=== PATIENT | female | born 1980 | race American Indian/Alaskan Native ===

== ENCOUNTER 2021-06-05 20:22 | Inpatient (IN) | payer OTHER ==
[2021-06-06 00:24] LABS: Bilirubin,Urine NEG (Negative); Blood,Urine NEG (Negative); Color,Urine Colorless (Yellow); Mucus,Urine FEW /HPF; Protein,Urine <15 mg/dL mg/dL (Negative); Urobilinogen,Urine < 2.0 mg/dL (<2.0); WBC,Urine < 1.0 /HPF (0.0-6.0)
[2021-06-06 00:37] LABS: Basophils # (Auto) 0.1 K/mm3 (0.0-0.1); Basophils % (Auto) 0.8 % (0.0-1.8); Eosinophils # (Auto) 0.1 K/mm3 (0.0-0.4); Eosinophils % (Auto) 1.2 % (0.0-4.3); Hemoglobin 13.8 gm/dl (10.1-14.3); Lymphocytes # (Auto) 3.3 K/mm3 (1.2-5.4); Lymphocytes % (Auto) 40.8 % (13.4-35.0); Mean Corpuscular HGB Conc 33 % (30-34); Mean Corpuscular Volume 92 fl (79-97); Monocytes # (Auto) 0.6 K/mm3 (0.0-0.8); Platelet Count 278 K/mm3 (140-440); Red Blood Count 4.57 M/mm3 (3.65-5.03); Red Cell Distribution Width 12.8 % (13.2-15.2)
[2021-06-06 00:55] LABS: Alanine Aminotransferase 61 units/L (7-56); Albumin 4.7 g/dL (3.9-5); BUN/Creatinine Ratio 17; Blood Urea Nitrogen 19 mg/dL (7-17); Calcium 10.3 mg/dL (8.4-10.2); Hemolysis Index 3
[2021-06-06] MEDS ORDERED: INSULIN REGULAR, HUMAN 100 UNITS/1 ML IV ONE (02:15)
[2021-06-06] MEDS ORDERED: SODIUM CHLORIDE 0.9% 1000 ML 1,000 ML IV ONE (02:15)
[2021-06-06] MEDS ORDERED: ONDANSETRON 4 MG/2 ML INJ IV ONE (02:49)
--- NOTE | 2021-06-06 02:56 | Emergency Department Report ---
ED General Adult HPI - General Chief complaint: Abdominal Pain Stated complaint: STOMACH BURNING/SOB/DEHYDRATED Time Seen by Provider: 06/06/21 02:15 Source: patient Mode of arrival: Ambulatory Limitations: No Limitations - History of Present Illness Initial comments: Patient is 41 years old obese female with no significant past medical history. Patient presented to the ER complaining of generalized weakness, nausea, diffuse abdominal pain, thirsty and increased urinary frequency. Patient stated that symptoms started 3 weeks ago but is getting worse now. Patient denied any fever or chills. No cough. Severity scale (0 -10): 5 - Related Data Allergies Allergy/AdvReac Type Severity Reaction Status Date / Time shrimp Allergy Unknown Uncoded 06/05/21 21:44 ED Review of Systems ROS: Stated complaint: STOMACH BURNING/SOB/DEHYDRATED Other details as noted in HPI Comment: All other systems reviewed and negative Constitutional: denies: chills, fever Respiratory: denies: cough, shortness of breath, SOB with exertion, SOB at rest Cardiovascular: denies: chest pain, palpitations Endocrine: increased hunger, increased thirst, increased urine Gastrointestinal: abdominal pain, nausea. denies: vomiting, diarrhea, constipation, hematemesis, melena, hematochezia Genitourinary: frequency. denies: urgency, dysuria Musculoskeletal: denies: back pain Neurological: weakness. denies: headache, numbness, paresthesias, confusion, abnormal gait ED Past Medical Hx - Past Medical History Previous Medical History?: No - Surgical History Past Surgical History?: Yes Additional Surgical History: R arm sx, c-sectionx1 ED Physical Exam - General Limitations: No Limitations General appearance: alert, in no apparent distress - Head Head exam: Present: atraumatic, normocephalic, normal inspection - Eye Eye exam: Present: normal appearance, PERRL - ENT ENT exam: Present: mucous membranes dry - Neck Neck exam: Present: normal inspection, full ROM. Absent: tenderness, meningismus - Respiratory Respiratory exam: Present: normal lung sounds bilaterally - Cardiovascular Cardiovascular Exam: Present: regular rate, normal rhythm, normal heart sounds - GI/Abdominal GI/Abdominal exam: Present: soft, normal bowel sounds. Absent: distended, tenderness, guarding, rebound, rigid, organomegaly, mass, bruit, pulsatile mass, hernia - Extremities Exam Extremities exam: Present: normal inspection, full ROM, normal capillary refill. Absent: tenderness, pedal edema, joint swelling, calf tenderness - Back Exam Back exam: Present: normal inspection, full ROM. Absent: CVA tenderness (R), CVA tenderness (L) - Neurological Exam Neurological exam: Present: alert, oriented X3, CN II-XII intact, normal gait, reflexes normal. Absent: motor sensory deficit - Psychiatric Psychiatric exam: Present: normal mood - Skin Skin exam: Present: warm, dry, intact ED Course Vital Signs 06/05/21 21:44 Temperature 98.2 F Pulse Rate 81 Respiratory 16 Rate Blood Pressure 159/87 [Right] O2 Sat by Pulse 95 Oximetry ED Medical Decision Making - Lab Data Result diagrams: 06/05/21 23:34 06/05/21 23:34 - Medical Decision Making Patient is 41 years old obese female with no significant past medical history. Patient presented to the ER complaining of generalized weakness, nausea, diffuse abdominal pain, thirsty and increased urinary frequency. Patient stated that symptoms started 3 weeks ago but is getting worse now. Patient denied any fever or chills. No cough. Labs reviewed and showed blood glucose of 888. Anion gap of 22. Patient started on normal saline and insulin. Urine is unremarkable for infection. I discussed the patient with Dr. Ramírez, he agreed to admit the patient to medical service for further management. Critical Care Time: Yes Critical care time in (mins) excluding proc time.: 30 Critical care attestation.: If time is entered above; I have spent that time in minutes in the direct care of this critically ill patient, excluding procedure time. ED Disposition Clinical Impression: Acute hyperglycemia Disposition: -09 OP ADMIT IP TO THIS HOSP Is pt being admited?: Yes Condition: Stable Instructions: Abdominal Pain (ED) Referrals: PRIMARY CARE, [Primary Care Provider] - 3-5 Days
[2021-06-06] MEDS ORDERED: ALUM-MAG HYDROXIDE-SIMETHICONE 200-200-20MG/5ML ORAL LIQD 30 ML PO PRN (04:42)
[2021-06-06] MEDS ORDERED: SENNOSIDES 8.6 MG TAB PO PRN (04:42)
[2021-06-06] MEDS ORDERED: IBUPROFEN 600 MG TAB PO PRN (04:42)
[2021-06-06] MEDS ORDERED: ACETAMINOPHEN 325 MG TAB PO PRN (04:42)
[2021-06-06] MEDS ORDERED: MAGNESIUM HYDROXIDE (MOM) ORAL LIQD UDC PO PRN (04:42)
[2021-06-06] MEDS ORDERED: NALOXONE 0.4 MG/1 ML INJ IV PRN (04:42)
[2021-06-06] MEDS ORDERED: SODIUM CHLORIDE 0.9% 1000 ML 1,000 ML IV SCH (04:45)
--- NOTE | 2021-06-06 04:48 | History and Physical Report ---
History of Present Illness Date of examination: 06/06/21 Date of admission: 06/06/21 04:08 Chief complaint: Abdominal pain increased taste Urine frequency History of present illness: Ms. Main is a 41 years old female who came to ED with chief complaint of generalized weakness, nausea, abdominal pain, increased thirst with urine frequency. She said her symptom has been ongoing and she did not know why. She came to the ED when her symptoms has worsened. In ED her blood sugar was 833. 2 L of IV fluid given bolus. Blood sugar rechecked post IV bolus 556. Patient denies any significant past medical history. Patient alert and oriented at the time of assessment. She denies fever, chills, or cough. We will continue IV hydration and monitor patient blood sugar with sliding scale. Past History Past Medical History: diabetes Past Surgical History: No surgical history Social history: lives with family (Lives with her children), smoking (Quit 2 years ago. Smoked 1 pack every 3 days) Family history: no significant family history Medications and Allergies Allergies Allergy/AdvReac Type Severity Reaction Status Date / Time shrimp Allergy Unknown Uncoded 06/05/21 21:44 Review of Systems Constitutional: fatigue, weakness, poor appetite Ears, nose, mouth and throat: no epistaxis, no bleeding gums, no dental pain Respiratory: no cough, no wheezing Gastrointestinal: no BRBPR, no melena Genitourinary Female: no dyspareunia Rectal: no itching, no hemorrhoids Integumentary: no rash, no pruritis Neurological: no head injury, no vertigo, no headaches Psychiatric: anxiety Endocrine: excessive thirst, polydipsia, polyuria, excessive sweating Hematologic/Lymphatic: no easy bruising, no easy bleeding Allergic/Immunologic: no urticaria Exam - Constitutional Vitals: Temp Pulse Resp BP Pulse Ox 98.2 F 81 16 159/87 95 06/05/21 21:44 06/05/21 21:44 06/05/21 21:44 06/05/21 21:44 06/05/21 21:44 General appearance: Present: mild distress, obese - EENT Eyes: Present: PERRL ENT: hearing intact, clear oral mucosa - Neck Neck: Present: supple, normal ROM - Respiratory Respiratory effort: normal Respiratory: bilateral: CTA - Cardiovascular Heart Sounds: Present: S1 & S2. Absent: rub, click - Extremities Extremities: pulses symmetrical, No edema Peripheral Pulses: within normal limits - Abdominal General gastrointestinal: Present: soft, non-tender, non-distended, normal bowel sounds Female genitourinary: Present: normal - Integumentary Integumentary: Present: clear, warm, dry - Musculoskeletal Musculoskeletal: gait normal, strength equal bilaterally - Psychiatric Psychiatric: appropriate mood/affect, intact judgment & insight, cooperative - Neurologic Neurologic: CNII-XII intact, moves all extremities - Allied Health Allied health notes reviewed: nursing Results - Labs CBC & Chem 7: 06/05/21 23:34 06/05/21 23:34 Labs: Abnormal lab results 06/05/21 06/05/21 06/06/21 Range/Units 23:34 23:34 04:33 RDW 12.8 L (13.2-15.2) % Lymph % (Auto) 40.8 H (13.4-35.0) % [place] % (Auto) 8.0 H (0.0-7.3) % Sodium 123 L (137-145) mmol/L Potassium 5.1 H (3.6-5.0) mmol/L Chloride 82.0 L (98-107) mmol/L BUN 19 H (7-17) mg/dL Glucose 833 H* (65-100) mg/dL POC Glucose 556 H (70-105) mg/dL Calcium 10.3 H (8.4-10.2) mg/dL ALT 61 H (7-56) units/L Assessment and Plan - Patient Problems (1) Acute hyperglycemia Current Visit: Yes Status: Acute Plan to address problem: Patient is status post 2 L IV bolus in ED Monitor blood sugar every 4 hours with sliding scale Continue IV hydration normal saline at 150cc continuously Blood sugar 833 in ED, rechecked after 2 L bolus and insulin 8 unitsblood sugar 556 Patient alert oriented x3. Patient not in DKAstable and calm Check hemoglobin A1c (2) Hyponatremia Current Visit: Yes Status: Acute Plan to address problem: Likely secondary to dehydration from hyperglycemia Continue IV hydration Monitor sodium level (3) Obesity Current Visit: Yes Status: Acute Plan to address problem: Discussed healthy diet Discussed eating more fruits and vegetable and avoiding food rich in concen trated sweeteners clinical document improvement educator/business partner consulted (4) DVT prophylaxis Current Visit: Yes Status: Acute Plan to address problem: . Subcutaneous heparin
[2021-06-06] MEDS ORDERED: INSULIN NPH/REGULAR 70/30 INJ SUB-Q SCH (06:00)
[2021-06-06] MEDS: INSULIN REGULAR, HUMAN 100 UNITS/1 ML SUB-Q SCH ×5 (06:01→21:59)
[2021-06-06 06:18] LABS: BUN/Creatinine Ratio 19; Blood Urea Nitrogen 17 mg/dL (7-17); Calcium 8.9 mg/dL (8.4-10.2); Hemolysis Index 15
[2021-06-06] MEDS: HEPARIN 5,000 UNIT/1 ML VIAL SUB-Q SCH ×3 (07:42→21:58)
[2021-06-06 09:45] LABS: BUN/Creatinine Ratio 18; Blood Urea Nitrogen 14 mg/dL (7-17); Calcium 9.6 mg/dL (8.4-10.2); Hemolysis Index 2
[2021-06-06] MEDS ORDERED: FAMOTIDINE 20 MG/2 ML INJ IV SCH (10:00)
[2021-06-06] MEDS: FAMOTIDINE 20 MG/2 ML INJ IV SCH ×2 (11:25→21:58)
[2021-06-06 13:21] LABS: Blood Urea Nitrogen 12 mg/dL (7-17); Calcium 9.3 mg/dL (8.4-10.2); Hemolysis Index 0
[2021-06-06 13:25] LABS: BUN/Creatinine Ratio 17
--- NOTE | 2021-06-06 13:31 | Event Note ---
Date: 06/06/21 Patient 41-year-old presented with generalized weakness nausea and vomiting polyuria polydipsia upon work-up and admission found to have Accu-Chek of 833. Patient also had hyponatremia was secondary to the hyperglycemia. Patient new onset diabetes was not in DKA. Will require insulin at this time. Otherwise patient hemodynamically stable. Anticipate discharge 1 to 2 days.
[2021-06-06 21:33] LABS: Blood Urea Nitrogen 11 mg/dL (7-17); Calcium 8.7 mg/dL (8.4-10.2); Hemolysis Index 45
[2021-06-06 21:44] LABS: BUN/Creatinine Ratio 16
[2021-06-06] MEDS ORDERED: INSULIN GLARGINE 100 UNITS/ML SUB-Q SCH (22:00)
[2021-06-07] MEDS: INSULIN REGULAR, HUMAN 100 UNITS/1 ML SUB-Q SCH ×6 (03:18→22:06)
[2021-06-07] MEDS: ONDANSETRON 4 MG/2 ML INJ IV PRN (05:28)
[2021-06-07] MEDS: HEPARIN 5,000 UNIT/1 ML VIAL SUB-Q SCH ×3 (05:29→22:06)
[2021-06-07 05:45] LABS: Hematocrit 38.6 % (30.3-42.9); Hemoglobin 13.3 gm/dl (10.1-14.3); Mean Corpuscular HGB Conc 35 % (30-34); Mean Corpuscular Volume 90 fl (79-97); Platelet Count 236 K/mm3 (140-440); Red Blood Count 4.29 M/mm3 (3.65-5.03); Red Cell Distribution Width 12.4 % (13.2-15.2)
[2021-06-07 06:06] LABS: Alanine Aminotransferase 101 units/L (7-56); BUN/Creatinine Ratio 13; Blood Urea Nitrogen 10 mg/dL (7-17); Calcium 9.3 mg/dL (8.4-10.2); Hemolysis Index 7
--- NOTE | 2021-06-07 08:06 | Progress Note ---
Assessment and Plan - Patient Problems (1) Elevated liver function tests Current Visit: Yes Status: Acute Plan to address problem: Unclear etiology. Patient did complain of some right-sided flank pain. Will obtain ultrasound gallbladder. Will repeat LFTs because they were not elevated when she came in previously. Patient was not started on statin. We will also check acute hepatitis panel. (2) Acute hyperglycemia Current Visit: Yes Status: Acute Plan to address problem: Diabetes currently uncontrolled. Patient will require regular insulin. Will change insulin to 70/30 insulin 15 units twice daily and titrate accordingly. (3) Hyponatremia Current Visit: Yes Status: Acute Plan to address problem: Was secondary to hyperglycemia. Correcting as we correct patient's blood glucose. (4) Obesity Current Visit: Yes Status: Acute Qualifiers: Body mass index: BMI 37.0-37.9 Plan to address problem: Patient been educated on diet control. We will also order diabetic education as well. Should seek certified weight loss head athletic trainer/strength coach and possible sleep apnea test after discharge. Subjective Date of service: 06/07/21 Principal diagnosis: Hypoglycemia, new onset diabetes Interval history: 06/07/2021 patient feels better today. Still feels weak blood sugars uncontrolled today and low 300s. Hospital course complicated by elevated liver function test today. Objective - Constitutional Vitals: Vital Signs - 12hr 06/06/21 06/07/21 23:27 03:00 Pulse Rate 77 Pulse Rate [ 77 Right Apical] Respiratory 18 Rate O2 Sat by Pulse 98 Oximetry General appearance: Present: no acute distress, well-nourished - EENT Eyes: PERRL, EOM intact ENT: hearing intact, clear oral mucosa Ears: bilateral: normal - Neck Neck: supple, normal ROM - Respiratory Respiratory effort: normal Respiratory: bilateral: CTA - Breasts Breasts: normal - Cardiovascular Rhythm: regular Heart Sounds: Present: S1 & S2. Absent: gallop, rub Extremities: pulses intact, No edema, normal color, Full ROM - Gastrointestinal General gastrointestinal: Present: soft, non-tender, non-distended, normal bowel sounds - Genitourinary Female genitourinary: normal - Integumentary Integumentary: clear, warm, dry - Musculoskeletal Musculoskeletal: 1, strength equal bilaterally - Neurologic Neurologic: moves all extremities - Psychiatric Psychiatric: memory intact, appropriate mood/affect, intact judgment & insight - Labs CBC & Chem 7: 06/07/21 04:35 06/07/21 04:35 Labs: Abnormal lab results 06/06/21 06/06/21 06/06/21 Range/Units 08:58 11:16 12:18 MCHC (30-34) % RDW (13.2-15.2) % Sodium 136 L (137-145) mmol/L Chloride 97.7 L (98-107) mmol/L Carbon Dioxide (22-30) mmol/L Glucose 385 H 371 H (65-100) mg/dL POC Glucose 398 H (70-105) mg/dL AST (5-40) units/L ALT (7-56) units/L 06/06/21 06/06/21 06/06/21 Range/Units 16:28 17:09 21:04 MCHC (30-34) % RDW (13.2-15.2) % Sodium 131 L (137-145) mmol/L Chloride 97.4 L (98-107) mmol/L Carbon Dioxide 21 L (22-30) mmol/L Glucose 288 H (65-100) mg/dL POC Glucose 457 H 430 H (70-105) mg/dL AST (5-40) units/L ALT (7-56) units/L 06/06/21 06/07/21 06/07/21 Range/Units 21:45 02:18 04:35 MCHC 35 H (30-34) % RDW 12.4 L (13.2-15.2) % Sodium (137-145) mmol/L Chloride (98-107) mmol/L Carbon Dioxide (22-30) mmol/L Glucose (65-100) mg/dL POC Glucose 270 H 383 H (70-105) mg/dL AST (5-40) units/L ALT (7-56) units/L 06/07/21 06/07/21 06/07/21 Range/Units 04:35 06:31 07:48 MCHC (30-34) % RDW (13.2-15.2) % Sodium 132 L (137-145) mmol/L Chloride 95.0 L (98-107) mmol/L Carbon Dioxide (22-30) mmol/L Glucose 346 H (65-100) mg/dL POC Glucose 288 H 320 H (70-105) mg/dL AST 172 H (5-40) units/L ALT 101 H (7-56) units/L
[2021-06-07] MEDS: FAMOTIDINE 20 MG/2 ML INJ IV SCH (09:31)
[2021-06-07 13:01] LABS: Total Cells Counted 100
[2021-06-07 13:02] LABS: Platelet Estimate Consistent w Auto; RBC Morphology Normal
[2021-06-07 16:13] LABS: BUN/Creatinine Ratio 11; Blood Urea Nitrogen 10 mg/dL (7-17); Calcium 9.1 mg/dL (8.4-10.2); Hemolysis Index 12
[2021-06-07 16:23] LABS: Hepatitis B Surface Antigen Non-Reactive (Negative); Hepatitis C Virus Antibody Non-Reactive (NonReactive)
[2021-06-07] MEDS: INSULIN NPH/REGULAR 70/30 INJ SUB-Q SCH (17:29)
[2021-06-07] MEDS: FAMOTIDINE 20 MG TAB PO SCH (22:06)
[2021-06-08] MEDS: ONDANSETRON 4 MG/2 ML INJ IV PRN (06:19)
[2021-06-08] MEDS: HEPARIN 5,000 UNIT/1 ML VIAL SUB-Q SCH (06:19)
[2021-06-08 06:32] LABS: Hematocrit 39.7 % (30.3-42.9); Hemoglobin 13.7 gm/dl (10.1-14.3); Mean Corpuscular HGB Conc 35 % (30-34); Mean Corpuscular Volume 90 fl (79-97); Platelet Count 246 K/mm3 (140-440); Red Cell Distribution Width 12.7 % (13.2-15.2)
[2021-06-08 06:59] LABS: Blood Urea Nitrogen 8 mg/dL (7-17); Calcium 9.5 mg/dL (8.4-10.2); Hemolysis Index 14
[2021-06-08 07:00] LABS: BUN/Creatinine Ratio 11
[2021-06-08] MEDS: INSULIN REGULAR, HUMAN 100 UNITS/1 ML SUB-Q SCH ×2 (07:55→12:48)
--- NOTE | 2021-06-08 08:48 | Ultrasound Report ---
ULTRASOUND ABDOMEN, LIMITED (RIGHT UPPER QUADRANT) INDICATION: ruq pain. COMPARISON: None available. FINDINGS: Pancreas: Visualized portion shows no significant abnormality. Liver: Moderate coarse increased echotexture characteristic for steatosis. Gallbladder: 1.8 cm calcified gallstone Bile ducts: Normal. Common Bile Duct measures 3 mm. Free fluid: None. Additional Findings: None. IMPRESSION: 1. Cholelithiasis. 2. Moderate hepatic steatosis Signer Name: Adan Chatman MD Signed: 06/08/2021 8:44 AM Workstation Name: [id number]
[2021-06-08 08:50] LABS: Total Cells Counted 100
[2021-06-08 08:51] LABS: Platelet Estimate Consistent w Auto; RBC Morphology Normal
[2021-06-08] MEDS: INSULIN NPH/REGULAR 70/30 INJ SUB-Q SCH (09:46)
[2021-06-08] MEDS: FAMOTIDINE 20 MG TAB PO SCH (09:47)
--- NOTE | 2021-06-08 10:00 | Discharge Summary ---
Providers - Providers Date of Admission: 06/06/21 04:08 Date of discharge: 06/08/21 Attending physician: HELENA RAMOS 06/06/21 04:43 Consult to Dietitian/Nutrition [CONS] Routine Physician Instructions: Reason For Exam: acute hyperglycemia Reason for Consult: Nutrition Recommendations Reason for Consult: diabetes 06/07/21 08:06 Consult to Dietitian/Nutrition [CONS] Routine Physician Instructions: Reason For Exam: Reason for Consult: Diet education Primary care physician: CREDIT CARD ANALYST Hospitalization Reason for admission: New DM, hyperglycemia Condition: Stable Hospital course: Ms. Main is a 41 years old female who came to ED with chief complaint of generalized weakness, nausea, abdominal pain, increased thirst with urine frequency. She said her symptom has been ongoing and she did not know why. She came to the ED when her symptoms has worsened. In ED her blood sugar was 833. 2 L of IV fluid given bolus. Blood sugar rechecked post IV bolus 556. Patient denies any significant past medical history. The patient was admitted with diagnosis of hyperglycemia and new diagnosis of uncontrolled diabetes mellitus type 2. The patient received IV fluid hydration and insulin 70/30 15 units twice daily with improvement in BG. Patient will also be treated with Glucophage at discharge. Creatinine is stable. Dedicated discharge time 35 minutes Disposition: DC-01 TO HOME OR SELFCARE Final Discharge Diagnosis (Prints w/discharge instructions): Hyperglycemia, new diagnosis diabetes mellitus type 2 and hyponatremia Core Measure Documentation - Palliative Care Palliative Care/ Comfort Measures: Not Applicable - Core Measures Any of the following diagnoses?: none Exam - Constitutional Vitals: Temp Pulse Resp BP Pulse Ox 98.2 F 64 20 132/71 98 06/08/21 08:01 06/08/21 08:23 06/08/21 08:01 06/08/21 08:01 06/08/21 08:01 General appearance: Present: no acute distress, well-nourished - EENT Eyes: Present: PERRL ENT: hearing intact, clear oral mucosa - Neck Neck: Present: supple, normal ROM - Respiratory Respiratory effort: normal Respiratory: bilateral: CTA - Cardiovascular Heart Sounds: Present: S1 & S2. Absent: rub, click - Extremities Extremities: pulses symmetrical, No edema Peripheral Pulses: within normal limits - Abdominal General gastrointestinal: Present: soft, non-tender, non-distended, normal bowel sounds Female genitourinary: Present: normal - Integumentary Integumentary: Present: clear, warm, dry - Musculoskeletal Musculoskeletal: gait normal, strength equal bilaterally - Psychiatric Psychiatric: appropriate mood/affect, intact judgment & insight - Neurologic Neurologic: CNII-XII intact, moves all extremities Plan Activity: advance as tolerated Weight Bearing Status: Weight Bear as Tolerated Diet: diabetic Follow up with: PRIMARY CARE, [Primary Care Provider] - 3-5 Days Prescriptions: metFORMIN [Glucophage] 500 mg PO BID #60 tablet Insulin NPH/Regular [NovoLIN 70/30] 20 unit SUB-Q BIDDIAB 30 Days units
[2021-06-08 12:28] VITALS: BP 132/75
== END 2021-06-08 15:03 | disposition home or self-care (01) | DRG 638 ==
LOC: ED 20:22 → 4A 06-06 04:08
PROVIDERS: ADMIT Internal Medicine Geriatric Medicine; ATTEND Hospitalist
DX: E11.65 Type 2 diabetes mellitus with hyperglycemia (principal); E87.1 Hypo-osmolality and hyponatremia; E66.9 Obesity, unspecified; F17.200 Nicotine dependence, unspecified, uncomplicated; Z68.38 Body mass index [BMI] 38.0-38.9, adult; Z91.013 Allergy to seafood
CPT/HCPCS: 36415; 76705; 80048; 80053; 80074; 81001; 82805; 82962; 83036; 83735; 84100; 85007; 85025; 99284; G0378; J1644; J1815; J2405; J7030

== ENCOUNTER 2021-11-08 13:28 | Emergency (ER) | payer OTHER ==
[2021-11-08 14:05] VITALS: BP 167/102
--- NOTE | 2021-11-08 15:05 | Emergency Department Report ---
ED Female HPI - General Chief complaint: Urogenital-Female Stated complaint: CHANCE WHEN PEEING Time Seen by Provider: 11/08/21 14:47 Source: patient Mode of arrival: Ambulatory Limitations: No Limitations - History of Present Illness Initial comments: 41-year-old female -Mex[place] obese female with a past medical history of diabetes presents to the ER today with complaints of UTI symptoms. Patient states that symptoms started 4 days ago. She reports dysuria, urinary frequency and suprapubic abdominal discomfort. She denies any urinary urgency, hematuria, urinary odor or any abnormal vaginal symptoms. She denies any fever, chills or back pain. She denies any nausea or vomiting. She denies any history of frequent UTIs. She is not concerned for any STD and denies any new sexual partners. She is not currently on any control. Last menstrual cycle was October 29, 2021. Complaint: dysuria -: days(s) (4) - Related Data Previous Rx's Medication Instructions Recorded Last Taken Type Insulin NPH/Regular [NovoLIN 70/30] 20 unit SUB-Q BIDDIAB 30 Days 06/08/21 Unknown Rx units metFORMIN [Glucophage] 500 mg PO BID #60 tablet 06/08/21 Unknown Rx Fluconazole [Diflucan TAB] 200 mg PO QDAY #2 tablet 11/08/21 Unknown Rx Phenazopyridine [Pyridium] 200 mg PO TID PRN #9 tab 11/08/21 Unknown Rx Sulfamethoxazole/Trimethoprim 1 each PO BID #10 11/08/21 Unknown Rx [Bactrim DS TAB] Allergies Allergy/AdvReac Type Severity Reaction Status Date / Time shrimp Allergy Unknown Uncoded 06/05/21 21:44 ED Review of Systems ROS: Stated complaint: CHANCE WHEN PEEING Other details as noted in HPI Comment: All other systems reviewed and negative Constitutional: denies: chills, fever Eyes: denies: eye pain, eye discharge, vision change ENT: denies: ear pain, throat pain Respiratory: denies: cough, shortness of breath, SOB with exertion, SOB at rest, wheezing Gastrointestinal: abdominal pain. denies: nausea, vomiting, diarrhea, constipation, hematemesis, hematochezia Genitourinary: denies: urgency, dysuria, frequency, hematuria, discharge, abnormal menses, dyspareunia Skin: denies: rash, lesions, change in color, change in hair/nails, pruritus Neurological: denies: headache, weakness, numbness, paresthesias, abnormal gait, vertigo Psychiatric: denies: anxiety, depression, auditory hallucinations, visual hallucinations, homicidal thoughts, suicidal thoughts Hematological/Lymphatic: denies: easy bleeding, easy bruising, swollen glands ED Past Medical Hx - Past Medical History Previous Medical History?: Yes Hx Diabetes: Yes - Surgical History Additional Surgical History: R arm sx, c-sectionx1 - Social History Smoking Status: Former Smoker - Medications Home Medications: Home Medications Medication Instructions Recorded Confirmed Last Taken Type Insulin NPH/Regular [NovoLIN 70/30] 20 unit SUB-Q BIDDIAB 30 Days 06/08/21 Unknown Rx units metFORMIN [Glucophage] 500 mg PO BID #60 tablet 06/08/21 Unknown Rx Fluconazole [Diflucan TAB] 200 mg PO QDAY #2 tablet 11/08/21 Unknown Rx Phenazopyridine [Pyridium] 200 mg PO TID PRN #9 tab 11/08/21 Unknown Rx Sulfamethoxazole/Trimethoprim 1 each PO BID #10 11/08/21 Unknown Rx [Bactrim DS TAB] ED Physical Exam - General Limitations: No Limitations General appearance: alert, in no apparent distress, obese - Head Head exam: Present: atraumatic, normocephalic, normal inspection - Eye Eye exam: Present: normal appearance, PERRL, EOMI Pupils: Present: normal accommodation - Neck Neck exam: Present: normal inspection, full ROM. Absent: meningismus - Respiratory Respiratory exam: Present: normal lung sounds bilaterally. Absent: respiratory distress - Cardiovascular Cardiovascular Exam: Present: regular rate, normal rhythm, normal heart sounds - GI/Abdominal GI/Abdominal exam: Present: soft. Absent: distended, tenderness, guarding, rebound - Back Exam Back exam: Present: normal inspection, full ROM. Absent: CVA tenderness (R), CVA tenderness (L) - Neurological Exam Neurological exam: Present: alert, oriented X3, CN II-XII intact, normal gait - Psychiatric Psychiatric exam: Present: normal affect, normal mood - Skin Skin exam: Present: intact ED Course Vital Signs 11/08/21 14:02 Temperature 99.2 F Pulse Rate 94 H Respiratory 16 Rate Blood Pressure 167/102 O2 Sat by Pulse 99 Oximetry ED Medical Decision Making - Medical Decision Making Urinalysis reviewed-she does have 1+ bacteria but no leukocytes or nitrites and only 5 WBCs but patient is symptomatic , and she is a diabetic and she denies any abnormal vaginal discharge or concern for STD. Will treat patient with a 5- day course of Bactrim, and order a urine culture. Patient currently resting comfortably. She is not toxic or ill-appearing. She has a soft nontender abdomen. No CVA tenderness. No vital signs show that she is hypertensive, but otherwise unremarkable. She has no symptoms related to hypertension at this time. She is neurologically intact with a normal gait. Discussed results with patient. Discussed treatment plan with patient. Recommend increasing her water intake. Discussed proper control of her diabetes. She expressed understanding of all instructions and agree with plan. Patient stable at time of discharge. Critical care attestation.: If time is entered above; I have spent that time in minutes in the direct care of this critically ill patient, excluding procedure time. ED Disposition Clinical Impression: Dysuria Disposition: 01 HOME / SELF CARE / HOMELESS Is pt being admited?: No Does the pt Need Aspirin: No Condition: Stable Instructions: Dysuria Additional Instructions: I recommend take the Bactrim as prescribed for the next 5 days. Take the Pyridium to help with discomfort when urinating. The pyridium can change your urine orange or red. Drink lots of water. Return to the ER if your symptoms worsens in any way. Prescriptions: Sulfamethoxazole/Trimethoprim [Bactrim DS TAB] 1 each PO BID #10 Fluconazole [Diflucan TAB] 200 mg PO QDAY #2 tablet Phenazopyridine [Pyridium] 200 mg PO TID PRN #9 tab PRN Reason: dysuria Referrals: PRIMARY CARE, [Primary Care Provider] - 3-5 Days Time of Disposition: 16:56
[2021-11-08 16:45] LABS: HCG Qualitative,Urine Negative (Negative)
[2021-11-08 16:49] LABS: Bacteria,Urine 1+ /HPF (Negative); Bilirubin,Urine NEG (Negative); Blood,Urine NEG (Negative); Color,Urine Yellow (Yellow); Mucus,Urine FEW /HPF; Protein,Urine <15 mg/dL mg/dL (Negative)
== END 2021-11-08 17:03 | disposition home or self-care (01) ==
LOC: ED 13:28
DX: R30.0 Dysuria (principal); E11.9 Type 2 diabetes mellitus without complications; Z98.890 Other specified postprocedural states; Z87.891 Personal history of nicotine dependence; Z91.013 Allergy to seafood
CPT/HCPCS: 81001; 81025; 87086; 99283